=== PATIENT | male | born 1995 | race Caucasian/White ===

== ENCOUNTER 2022-01-01 06:24 | Emergency (ER) | payer OTHER ==
[~2022-01-01] VITALS: Ht 182.9 cm; Wt 93.2 kg
[2022-01-01] MEDS ORDERED: HYDR50TA70 PO (06:31)
[2022-01-01] MEDS ORDERED: ONDANSETRON 4 MG ORAL DISINTEGRATING TAB PO ONE (07:45)
[2022-01-01] MEDS ORDERED: ONDA4TAB6 PO (09:19)
[2022-01-01 09:35] VITALS: BP 146/86
== END 2022-01-01 09:41 | disposition home or self-care (01) ==
LOC: M ED 06:24
DX: R05.9 Cough, unspecified (principal); R11.2 Nausea with vomiting, unspecified; B34.8 Other viral infections of unspecified site; F41.9 Anxiety disorder, unspecified
CPT/HCPCS: 99283; Q0162; U0003

== ENCOUNTER 2022-03-29 22:06 | Emergency (ER) | payer OTHER ==
[~2022-03-29] VITALS: Ht 182.9 cm; Wt 95.5 kg
[~2022-03-29 22:06] MED LIST: HYDR50TA70 PO; ONDA4TAB6 PO
[2022-03-29 22:07] VITALS: BP 142/70
== END 2022-03-29 23:19 | disposition left against medical advice (07) ==
LOC: M ED 22:06
DX: Z53.21 Procedure and treatment not carried out due to patient leaving prior to being seen by health care provider (principal)

== ENCOUNTER 2022-07-27 06:07 | Emergency (ER) | payer OTHER ==
[~2022-07-27] VITALS: Ht 185.4 cm; Wt 97.1 kg
[2022-07-27] MEDS ORDERED: ONDANSETRON 4MG ORAL DISINTEGRATING TAB PO ONE (07:05)
[2022-07-27] MEDS ORDERED: ONDA4TAB6 PO (08:31)
[2022-07-27] MEDS ORDERED: DOXY-443 PO (08:31)
[2022-07-27] MEDS ORDERED: BENZ200C70 PO (08:31)
[2022-07-27 08:57] VITALS: BP 128/67
== END 2022-07-27 08:59 | disposition home or self-care (01) ==
LOC: M ED 06:07
DX: J02.9 Acute pharyngitis, unspecified (principal); J06.9 Acute upper respiratory infection, unspecified; R05.9 Cough, unspecified

== ENCOUNTER 2022-08-21 13:40 | Emergency (ER) | payer OTHER ==
[~2022-08-21] VITALS: Ht 182.9 cm; Wt 99.6 kg
[~2022-08-21 13:40] MED LIST changes: +BENZ200C70 PO; +DOXY-443 PO
[2022-08-21 16:46] VITALS: BP 128/82
== END 2022-08-21 16:47 | disposition home or self-care (01) ==
LOC: M ED 13:40
DX: S52.501A Unspecified fracture of the lower end of right radius, initial encounter for closed fracture (principal); W01.0XXA Fall on same level from slipping, tripping and stumbling without subsequent striking against object, initial encounter; Y92.511 Restaurant or cafe as the place of occurrence of the external cause; Z90.89 Acquired absence of other organs

== ENCOUNTER → 2022-10-05 | Outpatient (CLI) | payer OTHER | LOC: M SOG 07:56 | PROVIDERS: ATTEND Orthopaedic Surgery Hand Surgery | DX: S52.531A Colles' fracture of right radius, initial encounter for closed fracture (principal); X58.XXXA Exposure to other specified factors, initial encounter; Y92.9 Unspecified place or not applicable; Y93.9 Activity, unspecified; Y99.9 Unspecified external cause status ==

== ENCOUNTER → 2022-11-04 | Outpatient (CLI) | payer OTHER | LOC: M SOG 08:03 | PROVIDERS: ATTEND Physician Assistant | DX: S52.531D Colles' fracture of right radius, subsequent encounter for closed fracture with routine healing (principal) ==

== ENCOUNTER 2023-02-03 08:10 | Emergency (ER) | payer OTHER ==
[~2023-02-03] VITALS: Ht 182.9 cm; Wt 95.9 kg
[2023-02-03] MEDS ORDERED: ONDANSETRON 4MG 2ML VIAL IV ONE (08:35)
[2023-02-03] MEDS ORDERED: NS 1,000 ML IV ONE ×2 (08:35→11:15)
[2023-02-03 09:17] LABS: BASO # 0.1 10^3/uL (0.0-0.2); BASO % 0.9 % (0.0-1.0); EOS # 0.1 10^3/uL (0.0-0.5); HEMATOCRIT 45.3 % (42.0-52.0); HEMOGLOBIN 15.7 g/dl (13.5-17.5); LYMPH # 1.5 10^3/uL (1.5-5.0); LYMPH % 23.1 % (24.0-44.0); MEAN CORPUSCULAR HEMOGLOBIN 30.5 pg (27.0-33.0); MEAN CORPUSCULAR HGB CONC 34.7 g/dl (32.0-36.5); MEAN CORPUSCULAR VOLUME 88.1 fl (80.0-96.0); MONO # 0.5 10^3/uL (0.0-0.8); MONO % 7.2 % (2.0-8.0); NEUTROPHILS # 4.2 10^3/uL (1.5-8.5); NEUTROPHILS % 66.6 % (36.0-66.0); PLATELET COUNT, AUTOMATED 245 10^3/uL (150-450); RED BLOOD COUNT 5.14 10^6/uL (4.30-6.10); WHITE BLOOD COUNT 6.4 10^3/uL (4.0-10.0)
[2023-02-03 09:26] LABS: LIPASE 24 U/L (12-53)
[2023-02-03 09:29] LABS: ALBUMIN 3.8 G/DL (3.2-5.2); ALKALINE PHOSPHATASE 112 U/L (46-116); ALT/SGPT 18 U/L (7.0-40); AST/SGOT 22 U/L (<34); BILIRUBIN,DIRECT 0.1 MG/DL (<0.4); BILIRUBIN,TOTAL 0.3 MG/DL (0.3-1.2); BLOOD UREA NITROGEN 18 MG/DL (9-23); CALCIUM LEVEL 8.8 MG/DL (8.5-10.1); CARBON DIOXIDE LEVEL 25 MMOL/L (20-31); CHLORIDE LEVEL 109 MMOL/L (98-107); CREATININE FOR GFR 1.17 MG/DL (0.70-1.30); GLOMERULAR FILTRATION RATE > 60.0 (>60); GLUCOSE, FASTING 101 MG/DL (60-100); POTASSIUM SERUM 4.2 MMOL/L (3.5-5.1); SODIUM LEVEL 141 MMOL/L (136-145); TOTAL PROTEIN 6.9 G/DL (5.7-8.2)
[2023-02-03] MEDS ORDERED: PROMETHAZINE 25MG/ML 1ML VIAL IV ONE (10:25)
[2023-02-03] MEDS ORDERED: KETOROLAC 30 MG/ML 1ML VIAL IV ONE (11:15)
[2023-02-03] MEDS ORDERED: PROM25TA12 PO (12:33)
[2023-02-03 12:58] VITALS: BP 147/77
== END 2023-02-03 13:01 | disposition home or self-care (01) ==
LOC: M ED 08:10
DX: R11.2 Nausea with vomiting, unspecified (principal); R19.7 Diarrhea, unspecified
CPT/HCPCS: 80048; 80076; 83690; 85025; 87507; 96374; 96375; 99284; J1885; J2405; J2550

== ENCOUNTER 2024-03-21 06:59 | Emergency (ER) | payer OTHER ==
[~2024-03-21] VITALS: Ht 182.9 cm; Wt 94.4 kg
[~2024-03-21 06:59] MED LIST changes: +DOXY-323 PO; -DOXY-443 PO; +PROM25TA12 PO
[2024-03-21 08:37] LABS: BASO % 0.8 % (0.0-1.0); EOS # 0.1 10^3/uL (0.0-0.5); EOS % 3.1 % (0.0-3.0); HEMATOCRIT 43.9 % (42.0-52.0); HEMOGLOBIN 15.5 g/dl (13.5-17.5); LYMPH # 1.5 10^3/uL (1.5-5.0); LYMPH % 37.2 % (24.0-44.0); MEAN CORPUSCULAR HEMOGLOBIN 31.4 pg (27.0-33.0); MEAN CORPUSCULAR HGB CONC 35.3 g/dl (32.0-36.5); MONO # 0.3 10^3/uL (0.0-0.8); MONO % 7.9 % (2.0-8.0); NEUTROPHILS % 50.7 % (36.0-66.0); PLATELET COUNT, AUTOMATED 226 10^3/uL (150-450); RED BLOOD COUNT 4.93 10^6/uL (4.30-6.10); WHITE BLOOD COUNT 3.9 10^3/uL (4.0-10.0)
[2024-03-21] MEDS: NS 1,000 ML IV ONE (08:48)
[2024-03-21] MEDS: ACETAMINOPHEN *IV* 1,000 MG in IV 1 EA IV ONE (08:49)
[2024-03-21 08:51] LABS: INR 0.98; PARTIAL THROMBOPLASTIN TIME 27.5 SECONDS (24.8-34.2); PROTHROMBIN TIME 12.7 SECONDS (12.5-14.5)
[2024-03-21 09:00] LABS: LIPASE 21 U/L (12-53)
[2024-03-21 09:01] LABS: C REACTIVE PROTEIN QUANTITATIV < 0.40 MG/DL (<1.0)
[2024-03-21 09:02] LABS: ALBUMIN 3.7 G/DL (3.2-5.2); ALKALINE PHOSPHATASE 93 U/L (46-116); ALT/SGPT 20 U/L (7.0-40); AST/SGOT 16 U/L (<34); BILIRUBIN,DIRECT 0.2 MG/DL (<0.4); BILIRUBIN,TOTAL 0.4 MG/DL (0.3-1.2); BLOOD UREA NITROGEN 17 MG/DL (9-23); CALCIUM LEVEL 8.7 MG/DL (8.5-10.1); CARBON DIOXIDE LEVEL 26 MMOL/L (20-31); CHLORIDE LEVEL 110 MMOL/L (98-107); CREATININE FOR GFR 1.11 MG/DL (0.70-1.30); GLOMERULAR FILTRATION RATE > 60.0 (>60); GLUCOSE, FASTING 98 MG/DL (60-100); POTASSIUM SERUM 4.5 MMOL/L (3.5-5.1); SODIUM LEVEL 143 MMOL/L (136-145); TOTAL PROTEIN 6.6 G/DL (5.7-8.2)
[2024-03-21] MEDS ORDERED: HOME MED LIST COMPLETE! XX SCH (09:05)
[2024-03-21 09:46] VITALS: BP 139/81; TEMP 98.3; O2SAT 100
== END 2024-03-21 09:49 | disposition home or self-care (01) ==
LOC: M ED 06:59
DX: K92.2 Gastrointestinal hemorrhage, unspecified (principal)
CPT/HCPCS: 80048; 80076; 83605; 83690; 85025; 85610; 85730; 86140; 86850; 86900; 86901; 96365; 99284; J0131